=== PATIENT | male | born 2000 | race Caucasian/White ===

== ENCOUNTER → 2021-12-29 | Outpatient (REF) | LOC: M PLAIMG 13:03 | PROVIDERS: ATTEND Internal Medicine | DX: R06.02 Shortness of breath (principal) ==

== ENCOUNTER 2022-02-01 17:03 | Emergency (ER) | payer OTHER ==
[~2022-02-01] VITALS: Ht 175.3 cm; Wt 57.5 kg
[2022-02-01 17:03] VITALS: BP 158/101
[2022-02-01] MEDS ORDERED: LIDOCAINE 2% MDV 20ML VIAL SC ONE (18:40)
== END 2022-02-01 20:23 | disposition home or self-care (01) ==
LOC: M ED 17:03
DX: S61.211A Laceration without foreign body of left index finger without damage to nail, initial encounter (principal); W26.0XXA Contact with knife, initial encounter; Y92.009 Unspecified place in unspecified non-institutional (private) residence as the place of occurrence of the external cause; Y93.9 Activity, unspecified; Y99.9 Unspecified external cause status

== ENCOUNTER 2022-11-28 11:14 | Emergency (ER) | payer OTHER ==
[~2022-11-28] VITALS: Ht 172.7 cm; Wt 54.9 kg
[2022-11-28] MEDS ORDERED: BOOSTRIX/ADACEL VACCINE (DIPHTH/PERTUSS/ACELL/TETANUS) 0.5ML SYR IM ONE (12:05)
[2022-11-28] MEDS ORDERED: LIDOCAINE 1% MDV 20ML VIAL INFIL ONE (13:40)
[2022-11-28] MEDS ORDERED: LIDOCAINE W/EPINEPHRINE 1% 20ML VIAL INFIL ONE (14:25)
[2022-11-28] MEDS ORDERED: BACITRACIN OINTMENT 30GM TUBE TOP STA (15:24)
[2022-11-28] MEDS ORDERED: AMOX875T2 PO (15:27)
[2022-11-28] MEDS ORDERED: AUGMENTIN 875 MG TAB PO ONE (15:30)
[2022-11-28] MEDS ORDERED: IBUP80TA PO (15:31)
[2022-11-28 15:34] VITALS: BP 114/58
== END 2022-11-28 15:41 | disposition home or self-care (01) ==
LOC: M ED 11:14
DX: S00.83XA Contusion of other part of head, initial encounter (principal); S01.511A Laceration without foreign body of lip, initial encounter; S01.411A Laceration without foreign body of right cheek and temporomandibular area, initial encounter; S20.211A Contusion of right front wall of thorax, initial encounter; F10.10 Alcohol abuse, uncomplicated; Y04.0XXA Assault by unarmed brawl or fight, initial encounter; Z79.2 Long term (current) use of antibiotics; Z79.1 Long term (current) use of non-steroidal anti-inflammatories (NSAID); Z23 Encounter for immunization

== ENCOUNTER 2022-12-26 01:36 | Emergency (ER) | payer OTHER ==
[~2022-12-26 01:36] MED LIST: AMOX875T2 PO; IBUP80TA PO
[2022-12-26 01:45] VITALS: BP 145/78
== END 2022-12-26 02:00 | disposition left against medical advice (07) ==
LOC: EDBD 01:36 → M ED 01:36
DX: S02.2XXA Fracture of nasal bones, initial encounter for closed fracture (principal); S00.83XA Contusion of other part of head, initial encounter; Y04.0XXA Assault by unarmed brawl or fight, initial encounter; Z79.2 Long term (current) use of antibiotics; Z79.1 Long term (current) use of non-steroidal anti-inflammatories (NSAID); Z53.9 Procedure and treatment not carried out, unspecified reason

== ENCOUNTER 2022-12-26 11:31 | Emergency (ER) | payer OTHER ==
[~2022-12-26] VITALS: Ht 175.3 cm; Wt 59.1 kg
[2022-12-26 14:00] LABS: BASO % 0.5 % (0.0-1.0); EOS # 0.1 10^3/uL (0.0-0.5); HEMATOCRIT 47.2 % (42.0-52.0); LYMPH # 1.9 10^3/uL (1.5-5.0); LYMPH % 22.8 % (24.0-44.0); MEAN CORPUSCULAR HEMOGLOBIN 32.4 pg (27.0-33.0); MEAN CORPUSCULAR HGB CONC 33.9 g/dl (32.0-36.5); MEAN CORPUSCULAR VOLUME 95.5 fl (80.0-96.0); MONO # 0.6 10^3/uL (0.0-0.8); MONO % 7.5 % (2.0-8.0); NEUTROPHILS # 5.6 10^3/uL (1.5-8.5); PLATELET COUNT, AUTOMATED 226 10^3/uL (150-450); RED BLOOD COUNT 4.94 10^6/uL (4.30-6.10); WHITE BLOOD COUNT 8.3 10^3/uL (4.0-10.0)
[2022-12-26] MEDS ORDERED: ISOVUE-370 76% 100ML VIAL As Ordered ONE (14:03)
[2022-12-26 14:31] LABS: ALBUMIN 4.7 G/DL (3.2-5.2); BILIRUBIN,DIRECT 0.3 MG/DL (<0.4); TOTAL PROTEIN 7.5 G/DL (5.7-8.2)
[2022-12-26 17:20] VITALS: BP 132/83
== END 2022-12-26 17:24 | disposition home or self-care (01) ==
LOC: M ED 11:31
DX: S02.2XXA Fracture of nasal bones, initial encounter for closed fracture (principal); S00.83XA Contusion of other part of head, initial encounter; S20.211A Contusion of right front wall of thorax, initial encounter; S30.1XXA Contusion of abdominal wall, initial encounter; Y04.0XXA Assault by unarmed brawl or fight, initial encounter; Z79.2 Long term (current) use of antibiotics; Z79.1 Long term (current) use of non-steroidal anti-inflammatories (NSAID)